=== PATIENT | female | born 1980 | race Caucasian/White ===

== ENCOUNTER 2016-12-03 14:34 | Emergency (ER) | payer OTHER ==
[~2016-12-03] VITALS: Ht 152.4 cm; Wt 61.8 kg
[2016-12-03 14:44] VITALS: BP 141/92; PULSE 89; TEMP 98.6
[2016-12-03] MEDS ORDERED: EFFEXOR-XR150 MG (14:52)
[2016-12-03] MEDS ORDERED: KLONOPIN 0.5MG0.5 MG (14:52)
== END 2016-12-03 15:48 | disposition left against medical advice (07) ==
LOC: COL.ER 14:34
DX: S99.822A Other specified injuries of left foot, initial encounter (principal); X58.XXXA Exposure to other specified factors, initial encounter

== ENCOUNTER → 2017-03-27 | Outpatient (CLI) | payer OTHER ==
[~2017-03-27] MED LIST: EFFEXOR-XR150 MG; KLONOPIN 0.5MG0.5 MG
== END ==
LOC: BHSO 16:15
DX: F33.1 Major depressive disorder, recurrent, moderate (principal)

== ENCOUNTER → 2017-05-11 | Outpatient (CLI) | payer OTHER | LOC: BHSO 09:49 | DX: F41.1 Generalized anxiety disorder (principal) ==